=== PATIENT | male | born 1960 | race Caucasian/White ===

== ENCOUNTER → 2017-05-12 11:43 | Outpatient (CLI) | payer MEDICAID | END | disposition home or self-care (01) | LOC: D.RT 04-26 09:00 | DX: R91.1 Solitary pulmonary nodule (principal); J44.9 Chronic obstructive pulmonary disease, unspecified ==

== ENCOUNTER → 2017-05-17 13:56 | Outpatient (CLI) | payer MEDICAID | END | disposition home or self-care (01) | LOC: D.LABREF 13:56 | DX: J44.9 Chronic obstructive pulmonary disease, unspecified (principal) ==